=== PATIENT | male | born 1935 | race Caucasian/White ===

== ENCOUNTER 2017-02-06 19:18 | Emergency (ER) | payer MEDICARE ==
[~2017-02-06] VITALS: Ht 172.7 cm; Wt 59.0 kg
--- NOTE | 2017-02-09 13:28 | EKG ---
[facility] [address] [place], [place] [address] Signed Normal sinus rhythm with sinus arrhythmia Septal infarct , age undetermined Abnormal ECG No previous ECGs available Confirmed by STEFANIE STEWARD MD ([id number]) on 02/09/2017 1:28:41 PM Electronically Signed By: STEFANIE STEWARD MD 02/09/17 1328 PATIENT NAME: DEIRDRE GATICA Electrocardiogram DATE OF : 39 PHYSICIAN: STEFANIE STEWARD MD REPORT #: [id number] REPORT IS CONFIDENTIAL AND NOT TO BE RELEASED WITHOUT AUTHORIZATION
== END 2017-02-06 21:55 | disposition home or self-care (01) ==
LOC: ED 19:18
DX: R42 Dizziness and giddiness (principal); I10 Essential (primary) hypertension; I25.2 Old myocardial infarction; E03.9 Hypothyroidism, unspecified; F17.200 Nicotine dependence, unspecified, uncomplicated; Z88.0 Allergy status to penicillin; Z88.8 Allergy status to other drugs, medicaments and biological substances
CPT/HCPCS: 80053; 84484; 85025; 93005; 93010; 99284

== ENCOUNTER 2019-05-01 22:26 | Emergency (ER) | payer MEDICARE ==
[~2019-05-01] VITALS: Ht 172.7 cm; Wt 59.0 kg
[2019-05-02] MEDS ORDERED: ZOFRAN4 MG PO (03:27)
== END 2019-05-02 03:41 | disposition home or self-care (01) ==
LOC: ED 22:26
DX: R11.2 Nausea with vomiting, unspecified (principal); I10 Essential (primary) hypertension; I25.2 Old myocardial infarction; E03.9 Hypothyroidism, unspecified; Z87.891 Personal history of nicotine dependence; Z88.0 Allergy status to penicillin; Z88.8 Allergy status to other drugs, medicaments and biological substances
CPT/HCPCS: 71045; 80053; 81001; 83735; 85025; 87502; 96361; 96374; 96376; 99284-25; J2405; J7030; J7040

== ENCOUNTER 2019-06-08 20:28 | Emergency (ER) | payer MEDICARE ==
[~2019-06-08] VITALS: Ht 172.7 cm; Wt 59.0 kg
[~2019-06-08 20:28] MED LIST: ZOFRAN4 MG PO
== END 2019-06-08 23:14 | disposition home or self-care (01) ==
LOC: ED 20:28
DX: R10.30 Lower abdominal pain, unspecified (principal); I10 Essential (primary) hypertension; I25.2 Old myocardial infarction; E03.9 Hypothyroidism, unspecified; F03.90 Unspecified dementia, unspecified severity, without behavioral disturbance, psychotic disturbance, mood disturbance, and anxiety; Z88.0 Allergy status to penicillin; Z88.8 Allergy status to other drugs, medicaments and biological substances
CPT/HCPCS: 51701; 74177; 80053; 81001; 83690; 83735; 85025; 99284-25; Q9967

== ENCOUNTER 2021-11-23 17:54 | Emergency (ER) | payer MEDICARE ==
[~2021-11-23] VITALS: Ht 172.7 cm; Wt 59.0 kg
[2021-11-23] MEDS ORDERED: LOSARTAN POTASS50 MG PO (18:14)
[2021-11-23] MEDS ORDERED: LEVOTHYROXINE125 MCG PO (18:14)
--- NOTE | 2021-11-24 06:38 | EKG ---
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
== END 2021-11-23 19:25 | disposition home or self-care (01) ==
LOC: ED 17:54
DX: T67.5XXA Heat exhaustion, unspecified, initial encounter (principal); I10 Essential (primary) hypertension; I25.2 Old myocardial infarction; E03.9 Hypothyroidism, unspecified; Z88.8 Allergy status to other drugs, medicaments and biological substances; Z88.0 Allergy status to penicillin; Z79.899 Other long term (current) drug therapy
CPT/HCPCS: 36415; 80053; 83735; 84484; 85025; 93005; 93010; 99284-25